=== PATIENT | female | born 1955 | race Hispanic/Latino ===

== ENCOUNTER 2017-11-22 16:17 | Emergency (ER) | payer OTHER ==
[~2017-11-22] VITALS: Ht 160 cm; Wt 66.7 kg
[2017-11-22 16:40] LABS: ABSOLUTE BASOPHIL COUNT 0 /CUMM (0.0-0.2); ABSOLUTE EOSINOPHIL COUNT 0.2 /CUMM (0.0-0.7); ABSOLUTE LYMPH COUNT 1.9 /CUMM (1.2-3.4); ABSOLUTE MONOCYTE COUNT 0.4 /CUMM (0.10-0.60); BASOPHIL % 0.4 % (0.0-2.0); EOSINOPHIL % 3.1 % (0-5); GRANULOCYTE % 60.9 % (42.2-75.2); HEMATOCRIT 40.6 % (37-47); MEAN CORPUSCULAR HGB 26.1 PG (27.0-31.0); MEAN CORPUSCULAR HGB CONC 32.6 G/DL (33.0-37.0); MEAN CORPUSCULAR VOLUME 80.1 FL (81.0-99.0); MEAN PLATELET VOLUME 8.4 FL (7.4-10.4); PLATELET COUNT 276 /CUMM (130-400); RED BLOOD CELL CT 5.07 /CUMM (4.20-5.40); WHITE BLOOD CELL COUNT 6.6 /CUMM (4.8-10.8)
--- NOTE | 2017-11-22 16:43 | ED GENERAL ADULT ---
History of Present Illness General Chief Complaint: Chest Pain Stated Complaint: SIB DR ROSE FOR CP Source: patient Exam Limitations: no limitations Vital Signs & Intake/Output Vital Signs & Intake/Output Vital Signs Date Time Temp Pulse Resp B/P B/P Pulse O2 O2 Flow FiO2 Mean Ox Delivery Rate 11/23 2047 98.0 70 16 168/90 98 Room Air 11/22 1742 Room Air 11/22 1730 160/92 11/22 1708 64 16 178/80 98 Room Air 11/22 1706 60 16 196/78 98 Room Air 11/22 1702 60 16 210/80 11/22 1659 60 16 210/80 98 Room Air 11/22 1623 97.2 64 18 191/85 98 Room Air Allergies Coded Allergies: No Known Allergies (11/22/17) Triage Note: 62 YEAR OLD FEMALE STATES THAT WHILE DOING DISHES AROUND NOON SHE STARTED TO HAVE SOB AND MID CHEST PAIN SHARP THAT RADIATED INTO HER R ARM, NO ARM PAIN AT THIS TIME. CALLED DR ROSE AND WENT TO APPOINTMENT AND THEY BROUGHT HER TO ER DUE TO EKG CHANGES Triage Nurses Notes Reviewed? yes Onset: Abrupt Duration: hour(s): Timing: recent history HPI: 11/22/17 5:50 PM 52-year-old female presents to the emergency department with a sudden onset of retrosternal chest pain earlier today. The onset of the pain was at 12 noon. He took an aspirin and improved. She said that she had right arm pain. No nausea vomiting or fever. She did have shortness of breath and palpitations Her blood pressure on arrival to the emergency department had a systolic to 210 (Moody Flynn DO) Reconcile Medications Albuterol Sulfate (Proair Hfa) 90 MCG HFA.AER.AD 2 PUF INH PRN RESP. ( Reported) Ascorbate Calcium (Vitamin C) (Unknown Strength) TABLET (Unknown Dose) PO DAILY SUPPLEMENT (Reported) Aspirin (Ecotrin*) 81 MG TABLET. 1 TAB PO DAILY HEART/BLOOD (Reported) Hydralazine HCl 10 MG TABLET 1 TAB PO TID htn Hydrochlorothiazide 25 MG TABLET 1 TAB PO DAILY BP (Reported) Lubiprostone (Amitiza) 24 MCG CAPSULE 1 CAP PO DAILY GI (Reported) Metformin HCl 500 MG TABLET 1 TAB PO BID DM (Reported) Metoprolol Succinate 25 MG TAB 1 TAB PO DAILY HEART/BP (Reported) Potassium Chloride (Klor-Con 10) 10 MEQ TABLET.ER 1 TAB PO DAILY SUPPLEMENT ( Reported) Rosuvastatin Calcium (Crestor) 10 MG TABLET 1 TAB PO DAILY CHOLESTEROL ( Reported) (Jordan Rutledge MD) Past History Travel History Traveled to [place] past 21 day No Medical History Any Pertinent Medical History? 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 No (Moody Flynn DO) Review of Systems Review of Systems Constitutional: Denies: fever. EENTM: Denies: visual changes. Respiratory: Reports: short of breath. Cardiovascular: Reports: chest pain, palpitations. GI: Denies: abdominal pain. Genitourinary: Reports: no symptoms. Musculoskeletal: Reports: no symptoms. Skin: Reports: no symptoms. Neurological/Psychological: Reports: no symptoms. Hematologic/Endocrine: Reports: no symptoms. Immunologic/Allergic: Reports: no symptoms. (Moody Flynn DO) Physical Exam Physical Exam General Appearance: well developed/nourished, alert, awake, anxious, moderate distress Head: atraumatic, normal appearance Eyes: Bilateral: normal appearance, PERRL, EOMI. Ears, Nose, Throat: normal pharynx, normal ENT inspection, hearing grossly normal Neck: normal inspection, supple, full range of motion Respiratory: normal breath sounds, chest non-tender, no respiratory distress Cardiovascular: regular rate/rhythm Peripheral Pulses: 4+ radial (R), 4+ radial (L) Gastrointestinal: soft, non-tender Back: normal range of motion Extremities: pedal edema Neurologic/Psych: no motor/sensory deficits, awake, alert, oriented x 3 Skin: intact, normal color, warm/dry Core Measures ACS in differential dx? Yes CVA/TIA Diagnosis: No Sepsis Present: No Sepsis Focused Exam Completed? No (Moody Flynn DO) Progress Differential Diagnoses I considered the following diagnoses in my evaluation of the patient: Plan of Care: Orders Procedure Date/time Status TROPONIN LEVEL 11/23 1919 Complete EKG 11/23 1919 Active TROPONIN LEVEL 11/22 162 Complete MAGNESIUM 11/22 162 Complete COMPREHENSIVE METABOLIC PANEL 11/23 1623 Complete CBC WITHOUT DIFFERENTIAL 11/23 1623 Complete EKG 11/22 162 Active Laboratory Tests 11/22/17 1933: Troponin I < 0.01 11/22/17 1630: Anion Gap 11, Estimated GFR > 60, BUN/Creatinine Ratio 16.7, Glucose 170 H, Calcium 9.7, Magnesium 2.0, Total Bilirubin 0.2, AST 17, ALT 24, Alkaline Phosphatase 72, Troponin I < 0.01, Total Protein 7.4, Albumin 4.5, Globulin 2.9, Albumin/Globulin Ratio 1.6, CBC w Diff NO MAN DIFF REQ, RBC 5.07, MCV 80.1 L, MCH 26.1 L, MCHC 32.6 L, RDW 13.0, MPV 8.4, Gran % 60.9, Lymphocytes % 29.1, Monocytes % 6.5, Eosinophils % 3.1, Basophils % 0.4, Absolute Granulocytes 4.0, Absolute Lymphocytes 1.9, Absolute Monocytes 0.4, Absolute Eosinophils 0.2, Absolute Basophils 0 Initial ED EKG: NSR (Moody Flynn DO) Repeat EKG: unchanged Rhythm Strip: normal sinus rhythm (Jordan Rutledge MD) Departure Departure Condition: Stable Clinical Impression Primary Impression: Chest pain Secondary Impressions: Hypertension Departure Forms: Customer Survey General Discharge Information Comments 11/22/17 6 PM I spoke with the patient's control operator Dr. Rose who agrees with the plan of care to do two sets of troponins assuming these are negative the patient can be discharged if her blood pressure is controlled and she is asymptomatic. The patient will be signed out to Dr. Rutledge at 7 PM (Moody Flynn DO) Departure Time of Disposition: 2033 Disposition: HOME OR SELF CARE Referrals: Toribio Al MD (PCP/Family) Radha DAVID PHD,Naman Rice Prescriptions: Current Visit Scripts Hydralazine HCl 1 TAB PO TID #90 TAB (Jordan Rutledge MD) Critical Care Note Critical Care Note Critical Care Time: non-applicable (Moody Flynn DO)
--- NOTE | 2017-11-22 18:30 | RADIOLOGY REPORT ---
EXAMINATION: XR CHEST CLINICAL INFORMATION: Chest pain COMPARISON: None TECHNIQUE: 2 views of the chest were obtained. FINDINGS: Heart size at upper limits of normal and the aorta is mildly unfolded. No significant abnormality is noted involving the heart, lungs, mediastinum, bony thorax or soft tissues. No infiltrates effusions or lung masses are seen. IMPRESSION: No acute intrathoracic disease.
[2017-11-22] MEDS ORDERED: METFORMIN HCL500 M3 PO (18:58)
[2017-11-22] MEDS ORDERED: HYDROCHLOROTHIA25 M1 PO (19:00)
[2017-11-22] MEDS ORDERED: KLOR-CON 1010 ME1 PO (19:01)
[2017-11-22] MEDS ORDERED: AMITIZA24 MC1 PO (19:01)
[2017-11-22] MEDS ORDERED: CRESTOR10 M1 PO (19:02)
[2017-11-22] MEDS ORDERED: METOPROLOL SUCC25 M1 PO (19:04)
[2017-11-22] MEDS ORDERED: VITAMIN C500 M6 PO (19:05)
[2017-11-22] MEDS ORDERED: ASPIRIN EC81 M1 PO (19:05)
[2017-11-22] MEDS ORDERED: PROAIR HFA8.5 GM INH (19:06)
[2017-11-22] MEDS ORDERED: HYDRALAZINE HCL10 M1 PO (20:34)
[2017-11-22 20:48] VITALS: BP 168/90
== END 2017-11-22 20:52 ==
LOC: ERH 16:17
PROVIDERS: Physician Assistant
DX: R07.89 Other chest pain (principal); I10 Essential (primary) hypertension
CPT/HCPCS: 71046; 93005; 93010; 96374; J0360